=== PATIENT | male | born 1965 | race African-American/Black ===

== ENCOUNTER 2021-04-17 16:20 | Inpatient (IN) | payer OTHER ==
[2021-04-17 18:13] VITALS: BMI 25.7
[2021-04-17] MEDS ORDERED: MAGNESIUM CITRATE 300 ML BOTTLE PO PRN (19:37)
[2021-04-17] MEDS ORDERED: MAGNESIUM HYDROX 2400MG/30ML ORAL SUSPENSION 30 ML CUP PO PRN (19:37)
[2021-04-17] MEDS ORDERED: ACETAMINOPHEN 325 MG TABLET (FP) PO PRN (19:37)
[2021-04-17] MEDS ORDERED: guaiFENesin 200 MG/10 ML 10 ML UNIT-DOSE CUPS PO PRN (19:37)
[2021-04-17] MEDS ORDERED: NICOTINE POLACRILEX 2 MG GUM BC PRN (19:37)
[2021-04-17] MEDS ORDERED: LOPERAMIDE HCL 2 MG CAPSULE PO PRN (19:37)
[2021-04-17] MEDS ORDERED: IBUPROFEN 400 MG TABLET (FP) PO PRN (19:37)
[2021-04-17] MEDS ORDERED: P-EPHED 60MG/TRIPROLIDI 2.5MG TABLET PO PRN (19:37)
[2021-04-17] MEDS ORDERED: MAG HYDROX/AL HYDROX/SIMETH 30 ML UNIT-DOSE CUP PO PRN (19:37)
[2021-04-17] MEDS ORDERED: MELATONIN 5 MG TABLETS PO SCH (22:00)
[2021-04-18] MEDS ORDERED: TUBERCULIN PPD 5 TU/0.1ML VIAL ID ONE ×2 (00:37→04:25)
[2021-04-18] MEDS: hydrOXYzine PAMOATE 25 MG CAPSULE (FP) PO SCH ×6 (00:53→21:17)
[2021-04-18] MEDS: THIAMINE HCL 100 MG TABLET (FP) PO SCH ×2 (00:53→21:17)
[2021-04-18 09:58] LABS: HEMATOCRIT 41.6 % (35.4-49); HEMOGLOBIN 14.1 GM/dL (11.7-16.9); MCH 31.4 pg (25.7-33.7); MCHC 33.9 g/dl (32.0-35.9); MEAN CELL VOLUME 92.6 fl (80-96); MEAN PLT VOLUME 9.4 fl (7.5-11.1); PLATELET COUNT 236 10^3/uL (134-434); RBC 4.49 M/mm3 (4.00-5.60); WHITE BLOOD COUNT 3.9 K/mm3 (4.0-10.0)
[2021-04-18] MEDS: PRENATAL VITAMINS W/ FOLIC ACID TABLET (FP) PO SCH (10:23)
[2021-04-18 10:28] LABS: ALBUMIN 3.7 g/dl (3.4-5.0); CALCIUM 9.1 mg/dL (8.5-10.1)
[2021-04-18 10:29] LABS: BLOOD UREA NITROGEN 18.6 mg/dL (7-18)
[2021-04-18 10:31] LABS: CREATININE 1.2 mg/dL (0.55-1.3)
[2021-04-18 10:33] LABS: BILIRUBIN,TOTAL 0.4 mg/dL (0.2-1)
[2021-04-18 13:34] LABS: PH,URINE 6.5 (5.0-8.0); URINE APPEARANCE CLEAR; URINE BILIRUBIN NEGATIVE (NEGATIVE); URINE COLOR YELLOW; URINE GLUCOSE (UA) NEGATIVE (NEGATIVE); URINE KETONE TRACE (NEGATIVE); URINE LEUK ESTERASE NEGATIVE (NEGATIVE); URINE NITRITE NEGATIVE (NEGATIVE); URINE PROTEIN NEGATIVE (NEGATIVE)
[2021-04-18] MEDS: MELATONIN 5 MG TABLETS PO SCH (21:17)
[2021-04-19] MEDS: hydrOXYzine PAMOATE 25 MG CAPSULE (FP) PO SCH ×5 (06:51→21:19)
[2021-04-19] MEDS: PRENATAL VITAMINS W/ FOLIC ACID TABLET (FP) PO SCH (10:02)
[2021-04-19] MEDS: MELATONIN 5 MG TABLETS PO SCH (21:19)
[2021-04-19] MEDS: THIAMINE HCL 100 MG TABLET (FP) PO SCH (21:19)
[2021-04-20] MEDS: hydrOXYzine PAMOATE 25 MG CAPSULE (FP) PO SCH ×3 (06:14→14:04)
[2021-04-20] MEDS: PRENATAL VITAMINS W/ FOLIC ACID TABLET (FP) PO SCH (10:23)
[2021-04-20] MEDS: MELATONIN 5 MG TABLETS PO SCH (21:05)
[2021-04-20] MEDS: THIAMINE HCL 100 MG TABLET (FP) PO SCH (21:05)
[2021-04-20] MEDS: hydrOXYzine PAMOATE 25 MG CAPSULE (FP) PO PRN (21:06)
[2021-04-21] MEDS: PRENATAL VITAMINS W/ FOLIC ACID TABLET (FP) PO SCH (09:37)
[2021-04-21] MEDS: hydrOXYzine PAMOATE 25 MG CAPSULE (FP) PO PRN ×2 (09:37→21:40)
[2021-04-21] MEDS: MELATONIN 5 MG TABLETS PO SCH (21:39)
[2021-04-21] MEDS: THIAMINE HCL 100 MG TABLET (FP) PO SCH (21:39)
[2021-04-22] MEDS: hydrOXYzine PAMOATE 25 MG CAPSULE (FP) PO PRN ×2 (09:19→21:14)
[2021-04-22] MEDS: PRENATAL VITAMINS W/ FOLIC ACID TABLET (FP) PO SCH (09:19)
[2021-04-22] MEDS: THIAMINE HCL 100 MG TABLET (FP) PO SCH (21:13)
[2021-04-22] MEDS: MELATONIN 5 MG TABLETS PO SCH (21:13)
[2021-04-23] MEDS: hydrOXYzine PAMOATE 25 MG CAPSULE (FP) PO PRN ×2 (09:27→21:17)
[2021-04-23] MEDS: PRENATAL VITAMINS W/ FOLIC ACID TABLET (FP) PO SCH (09:27)
[2021-04-23] MEDS: MELATONIN 5 MG TABLETS PO SCH (21:16)
[2021-04-23] MEDS: THIAMINE HCL 100 MG TABLET (FP) PO SCH (21:17)
[2021-04-24] MEDS: hydrOXYzine PAMOATE 25 MG CAPSULE (FP) PO PRN ×2 (09:32→21:46)
[2021-04-24] MEDS: PRENATAL VITAMINS W/ FOLIC ACID TABLET (FP) PO SCH (09:32)
[2021-04-24] MEDS: MELATONIN 5 MG TABLETS PO SCH (21:46)
[2021-04-24] MEDS: THIAMINE HCL 100 MG TABLET (FP) PO SCH (21:46)
[2021-04-25] MEDS: PRENATAL VITAMINS W/ FOLIC ACID TABLET (FP) PO SCH (09:59)
[2021-04-25] MEDS: hydrOXYzine PAMOATE 25 MG CAPSULE (FP) PO PRN ×2 (09:59→21:07)
[2021-04-25] MEDS: THIAMINE HCL 100 MG TABLET (FP) PO SCH (21:07)
[2021-04-25] MEDS: MELATONIN 5 MG TABLETS PO SCH (21:07)
[2021-04-26] MEDS: hydrOXYzine PAMOATE 25 MG CAPSULE (FP) PO PRN ×2 (09:47→21:03)
[2021-04-26] MEDS: PRENATAL VITAMINS W/ FOLIC ACID TABLET (FP) PO SCH (09:47)
[2021-04-26] MEDS: MELATONIN 5 MG TABLETS PO SCH (21:03)
[2021-04-26] MEDS: THIAMINE HCL 100 MG TABLET (FP) PO SCH (21:03)
[2021-04-27] MEDS: PRENATAL VITAMINS W/ FOLIC ACID TABLET (FP) PO SCH (09:51)
[2021-04-27] MEDS: hydrOXYzine PAMOATE 25 MG CAPSULE (FP) PO PRN ×2 (09:52→22:05)
[2021-04-27] MEDS: MELATONIN 5 MG TABLETS PO SCH (22:04)
[2021-04-27] MEDS: THIAMINE HCL 100 MG TABLET (FP) PO SCH (22:05)
[2021-04-28] MEDS: hydrOXYzine PAMOATE 25 MG CAPSULE (FP) PO PRN ×2 (09:34→21:56)
[2021-04-28] MEDS: PRENATAL VITAMINS W/ FOLIC ACID TABLET (FP) PO SCH (09:34)
[2021-04-28] MEDS: THIAMINE HCL 100 MG TABLET (FP) PO SCH (21:56)
[2021-04-28] MEDS: MELATONIN 5 MG TABLETS PO SCH (21:56)
[2021-04-29] MEDS: hydrOXYzine PAMOATE 25 MG CAPSULE (FP) PO PRN ×2 (09:29→21:09)
[2021-04-29] MEDS: PRENATAL VITAMINS W/ FOLIC ACID TABLET (FP) PO SCH (09:29)
[2021-04-29] MEDS: MELATONIN 5 MG TABLETS PO SCH (21:08)
[2021-04-29] MEDS: THIAMINE HCL 100 MG TABLET (FP) PO SCH (21:08)
[2021-04-30] MEDS: PRENATAL VITAMINS W/ FOLIC ACID TABLET (FP) PO SCH (10:03)
[2021-04-30] MEDS: hydrOXYzine PAMOATE 25 MG CAPSULE (FP) PO PRN ×2 (10:04→21:10)
[2021-04-30] MEDS: MELATONIN 5 MG TABLETS PO SCH (21:10)
[2021-04-30] MEDS: THIAMINE HCL 100 MG TABLET (FP) PO SCH (21:10)
[2021-05-01 07:38] VITALS: BP 114/77; PULSE 78; TEMP 97.3
[2021-05-01] MEDS ORDERED: PT OWN MED DRAWER 7, Y5N ONE (09:10)
[2021-05-01] MEDS: PRENATAL VITAMINS W/ FOLIC ACID TABLET (FP) PO SCH (09:30)
== END 2021-05-01 09:45 | disposition home or self-care (01) | DRG 772 ==
LOC: YASAS 16:20 → Y5N 22:04
PROVIDERS: ADMIT Allergy & Immunology; ATTEND Allergy & Immunology
PROC: HZ42ZZZ Group Counseling for Substance Abuse Treatment, Cognitive-Behavioral (ICD-10-PCS; principal; 2021-04-17)
DX: F10.20 Alcohol dependence, uncomplicated (principal); F14.20 Cocaine dependence, uncomplicated; F17.210 Nicotine dependence, cigarettes, uncomplicated; F19.282 Other psychoactive substance dependence with psychoactive substance-induced sleep disorder; Z91.013 Allergy to seafood; Z56.0 Unemployment, unspecified
CPT/HCPCS: 36415; 80053; 81003; 85027; 86780; C9803; U0003; U0005